=== PATIENT | female | born 1965 | race Asian ===

== ENCOUNTER 2017-01-30 20:51 | Emergency (ER) | payer BC, OTHER ==
[~2017-01-30] VITALS: Ht 154.9 cm; Wt 63.6 kg
[2017-01-30 21:00] VITALS: Ht 154.9 cm; Wt 63.6 kg
--- NOTE | 2017-01-30 23:21 | RADRPT ---
PROCEDURE: XR Chest AP portable CLINICAL INDICATION: Cough TECHNIQUE: An AP portable radiograph of the chest was submitted. COMPARISON: None. FINDINGS: Support Hardware: None Cardiovascular: The heart is upper normal in size and the piriform plantar vasculature appears unrem arkable. Lung [place]: There is slight interstitial prominence as well as several nodular densities within the left upper lobe the largest measuring approximately 9 mm in diameter. No alveolar infiltrate is ev ident. Pleural Spaces: No pneumothorax or pleural effusion is identified. Osseous Structures: The osseous structures appear intact. Soft Tissues: The soft tissues appear generous. IMPRESSION: 1. Vague interstitial infiltrate with a few nodular densities seen in the left upper lobe the large st measuring 9 mm in diameter. This likely represents pneumonitis. This should be followed with a chest following treatment in 2-3 weeks to ensure resolution and exclude other underlying pathology. 2. No effusion or pneumothorax is evident. Physician Cy Date Time Electronically viewed and signed by Physician Cy on 01/30/2017 23:21 /
[2017-01-30] MEDS ORDERED: AZIT250T94 PO (23:44)
--- NOTE | 2017-01-30 23:51 | ERD ---
ER Documentation Chief Complaint Date/Time DATE: 01/30/17 TIME: 23:48 Chief Complaint flu like symptoms since tuesday HPI This 51-year-old female presents here dry cough since Tuesday night. Patient admits to fevers and chills. Patient denies any sore throat or ear pain. She denies any chest pain or shortness of breath. Patient also admits to body pain. There are no sick contacts at home. Patient denies any recent travel, leg redness or leg swelling. ROS 12 point review of systems was done, all negative except per HPI. Medications Home Meds Active Scripts Azithromycin* (Zithromax*) 250 Mg Tablet, 250 MG PO .ZPACK DIRECTED, #6 TAB TAKE 500 MG (2 TABS) THE FIRST DAY THEN 250 MG (1 TAB) DAYS 2-5 Prov:QUIN JARVIS 01/30/17 Allergies Allergies: Coded Allergies: No Known Allergy (Unverified , 01/30/17) PMhx/Soc History of Surgery: No Anesthesia Reaction: No Hx Neurological Disorder: No Hx Respiratory Disorders: No Hx Cardiac Disorders: Yes (HTN) Hx Psychiatric Problems: No Hx Miscellaneous Medical Probl: Yes (THYROID) Hx Alcohol Use: No Hx Substance Use: No Hx Tobacco Use: No Smoking Status: Never smoker Physical Exam Vitals Vital Signs Date Time Temp Pulse Resp B/P Pulse Ox O2 Delivery O2 Flow Rate FiO2 01/30/17 21:00 99.4 104 18 176/85 95 Physical Exam GENERAL: The patient is well-developed, well-nourished, in no acute distress. NECK: Cervical spine is non tender with no step off. Supple, no nuchal rigidity HEENT: Atraumatic. Pupils equal, round and reactive to light. Extraocular muscles are grossly intact. Conjunctivae pink, no discharge. Bilateral tympanic membranes are clear with no evidence of erythema, effusion or dulling of the light reflex. Tonsilar erythema with no exudates or uvular deviation. Clear rhinorrhea. RESPIRATORY: Clear to auscultation bilaterally. There are no rales, wheezes or rhonchi. HEART: Regular rate and rhythm. No murmurs, clicks, rubs or gallops. EXTREMITIES: No clubbing or cyanosis. Full range of motion. Grossly neurovascularly intact. NEUROLOGIC: Alert and oriented. Cranial nerves II through XII are intact. SKIN: There is no rash. The skin is warm and dry. Procedures/MDM Differential diagnosis includes but is not limited to; Viral URI, allergic rhinitis, bronchitis, pertussis,pneumonia. Patient did have some interstitial infiltrates on x-ray. Because patient has been febrile at home and her cough is worsening patient will be treated for possible bacterial etiology of pneumonitis. Recent home with azithromycin. Patient has denied any chest pain or shortness of breath. Suspicion for pulmonary embolism, pneumothorax is low. She is afebrile and well-appearing. She is not hypoxic or in any respiratory distress. Stable for outpatient follow-up. She needs to follow-up with her primary care doctor within 1-2 days or return to ER sooner symptoms worsen. My medical decision making was shared with patient she understands and agrees with plan. Departure Diagnosis: Primary Impression: Pneumonitis Patient Instructions: Pneumonia (Adult) Additional Instructions: Call your primary care doctor TOMORROW for an appointment during the next 1-2 days.See the doctor sooner or return here if your condition worsens before your appointment time. QUIN JARVIS Jan 30, 2017 23:51
== END 2017-01-30 23:55 | disposition home or self-care (01) ==
LOC: FTE 20:51
DX: J18.9 Pneumonia, unspecified organism (principal); I10 Essential (primary) hypertension
CPT/HCPCS: 71010

== ENCOUNTER 2017-02-21 15:03 | Emergency (ER) | payer BC ==
[~2017-02-21] VITALS: Ht 157.5 cm; Wt 65.0 kg
[~2017-02-21 15:03] MED LIST: AZIT250T94 PO
[2017-02-21 15:08] VITALS: Ht 157.5 cm; Wt 65.0 kg
[2017-02-21] MEDS ORDERED: METH-493 PO (15:56)
[2017-02-21] MEDS ORDERED: METO-448 PO (15:57)
[2017-02-21] MEDS ORDERED: LOSA50TA6 PO (15:57)
--- NOTE | 2017-02-21 17:04 | ERD ---
ER Documentation Chief Complaint Date/Time DATE: 02/21/17 TIME: 17:02 Chief Complaint high blood pressure x few days , taking htn meds .also c/o headcahe HPI This is a 52-year-old female who presents to the emergency room for evaluation of high blood pressure. The patient states that she is on metoprolol during the day and losartan at nighttime. She states that she noticed slight headache in the back of her head. She denies any blurred vision chest pain or shortness of breath associated with this and came to the ER for evaluation. ROS All systems reviewed and are negative except as per history of present illness. Medications Home Meds Reported Medications Metoprolol Tartrate* (Lopressor*) 25 Mg Tab, 25 MG PO BID, #60 TAB 02/21/17 Losartan Potassium* (Losartan Potassium*) 50 Mg Tablet, 50 MG PO DAILY, TAB 02/21/17 Methimazole* (Methimazole*) 5 Mg Tablet, 5 MG PO DAILY, TAB 02/21/17 Discontinued Scripts Azithromycin* (Zithromax*) 250 Mg Tablet, 250 MG PO .ZPACK DIRECTED, #6 TAB TAKE 500 MG (2 TABS) THE FIRST DAY THEN 250 MG (1 TAB) DAYS 2-5 Prov:QUIN JARVIS 01/30/17 Allergies Allergies: Coded Allergies: No Known Allergy (Unverified , 02/21/17) PMhx/Soc Medical and Surgical Hx: pt denies Surgical Hx History of Surgery: No Anesthesia Reaction: No Hx Neurological Disorder: No Hx Respiratory Disorders: No Hx Cardiac Disorders: Yes (HTN) Hx Psychiatric Problems: No Hx Miscellaneous Medical Probl: Yes (THYROID) Hx Alcohol Use: No Hx Substance Use: No Hx Tobacco Use: No Smoking Status: Never smoker Physical Exam Vitals Vital Signs Date Time Temp Pulse Resp B/P Pulse Ox O2 Delivery O2 Flow Rate FiO2 02/21/17 16:26 74 17 130/70 100 Room Air 02/21/17 15:08 98.0 82 18 170/74 97 Physical Exam INITIAL VITAL SIGNS: Reviewed by me GENERAL: The patient is well developed and appropriate for usual state of health in no apparent distress HEENT: Pupils equal, round, and reactive to light. EOMI. There is no scleral icterus. NECK: C-spine is soft and supple, there is no meningismus. There is no cervical lymphadenopathy. LUNGS: Clear to auscultation bilaterally. There are no rales, wheezes or rhonchi. HEART: Regular rate and rhythm, no murmurs, clicks, rubs or gallops. ABDOMEN: Soft, non-tender, non-distended. There are bowel sounds in all four quadrants. No rebound or guarding. EXTREMITIES: There is no peripheral cyanosis or edema. No focal swelling or erythema. NEUROLOGICAL: The patient moves all four extremities with 5/5 strength. Cranial nerves II - XII are intact. Normal gait. Alert and oriented SKIN: There is no apparent rash or petechiae. HEME/LYMPHATIC: There is no evidence of excessive bruising or lymphedema. PSYCHIATRIC: The patient does not appear anxious or depressed. Results 24 hrs Current Medications Medications (Trade) Dose Ordered Sig/Brigitte Route PRN Reason Start Time Stop Time Status Last Admin Dose Admin Clonidine (Catapres) 0.1 mg ONCE ONCE PO 02/21/17 15:30 02/21/17 15:31 DC 02/21/17 15:37 Procedures/MDM CT brain: No bleed This 52-year-old female presents to the ER for evaluation of hypertension and headache. When I evaluated the patient she was nontoxic-appearing. She had a blood pressure 170/93. She was given 0.[address] of the head was obtained which is normal. The patient's blood pressure is now 130/70. She is in no acute distress. I advised her that one-time increase in her blood pressure does not mandate changing blood pressure medications however if she continues to have elevated blood pressure with a headache that she should either return to the emergency room or follow-up with her primary care physician for medication dose adjustment. She did verbalize understanding. The patient is okay for discharge at this time and understands that she is to return to the ER if she develops any worsening symptoms. Departure Diagnosis: Primary Impression: Hypertension Condition: Stable FLYNN TOWNSEND DO Feb 21, 2017 17:04
[2017-02-21 17:14] VITALS: BP 109/68; PULSE 77; RESP 16
--- NOTE | 2017-02-21 17:48 | RADRPT ---
PROCEDURE: CT Brain without contrast. CLINICAL INDICATION: 52-year-old female with headache. TECHNIQUE: A CT of the brain was performed on a [employer] CT scanner [employer] ng a low dose technique with axial imaging from the skull base through the vertex without IV contras t. Multiplanar reformatted images were made. Images were reviewed on a PACS workstation. The CTDI vol is 45 mGy and the DLP is 720 mGycm. One or more of the following dose reduction techniques were used: - Automated exposure control. - Adjustment of the mA and/or kV according to patient size. Use of iterative reconstruction technique. COMPARISON: None FINDINGS: The fourth ventricle is normal in size. The third and lateral ventricles are normal in size and con figuration. The brain parenchyma is normal. The visible portions of the globes and extraocular muscles are normal. The paranasal sinuses are cl ear. The mastoid air cells and internal auditory canals are normal. The bony calvarium is intact. IMPRESSION: 1. Negative CT scan of the brain without contrast. 2. No intracranial hemorrhage, mass or evidence of sinusitis. RPTAT:AAJJ Physician Israel Date Time Electronically viewed and signed by Physician Israel on 02/21/2017 16:57 VINH/
== END 2017-02-21 17:15 | disposition home or self-care (01) ==
LOC: E/R 15:03
DX: I10 Essential (primary) hypertension (principal); R40.2142 Coma scale, eyes open, spontaneous, at arrival to emergency department; R40.2362 Coma scale, best motor response, obeys commands, at arrival to emergency department; R51 Headache
CPT/HCPCS: 70450; 99284; Z7610